=== PATIENT | male | born 2000 ===

== ENCOUNTER 2024-04-03 22:58 | Emergency (ER) | payer SELFPAY ==
[~2024-04-03] VITALS: Ht 188 cm; Wt 124.7 kg
[2024-04-03 23:29] LABS: BASOPHILS ABSOLUTE AUTO 0.06 K/mm3 (0.00-0.23); BASOPHILS PERCENT AUTO 1 % (0-2); EOSINOPHILS ABSOLUTE AUTO 0.27 K/mm3 (0.00-0.68); EOSINOPHILS PERCENT AUTO 3 % (0-6); Hematocrit 44.4 % (37.0-53.0); Hemoglobin 15.2 g/dL (13.5-17.5); IMMATURE GRAN ABSOLUTE AUTO 0.03 K/mm3 (0.00-0.10); IMMATURE GRAN PERCENT AUTO 0 % (0-1); LYMPHOCYTES ABSOLUTE AUTO 2.62 K/mm3 (0.84-5.20); LYMPHOCYTES PERCENT AUTO 29 % (21-46); MONOCYTES ABSOLUTE AUTO 0.67 K/mm3 (0.16-1.47); MONOCYTES PERCENT AUTO 7 % (4-13); Mean Corpuscular HGB 29.5 pg (26.0-34.0); Mean Corpuscular HGB Conc 34.2 g/dL (31.5-36.5); Mean Corpuscular Volume 86 fL (80-100); Mean Platelet Volume 9.4 fL (9.1-12.4); NEUTROPHILS ABSOLUTE AUTO 5.48 K/mm3 (1.96-9.15); NEUTROPHILS PERCENT AUTO 60 % (41-73); Platelet Count 270 K/mm3 (150-400); RDW Standard Deviation 38.1 fL (35.1-46.3); Red Blood Cell Count 5.16 M/mm3 (4.30-5.90); White Blood Cell Count 9.13 K/mm3 (4.00-11.30)
[2024-04-03 23:52] LABS: Albumin/Globulin Ratio 1.1 (0.8-1.8); Bilirubin, Total 0.2 mg/dL (0.1-1.0); Bun/Creatinine Ratio 15.4 (12.0-20.0); Calcium, Blood 9.1 mg/dL (8.5-10.1); Creatinine, Blood 1.04 mg/dL (0.60-1.20); Globulin, Blood 3.7 g/dL (2.2-4.0); Potassium, Blood 3.7 mmol/L (3.5-5.5); Total Protein, Blood 7.7 g/dL (6.4-8.2)
[2024-04-04 00:37] LABS: Source, Urine Clean Catch
[2024-04-04 00:42] LABS: Appearance, Urine Clear (Clear); Bilirubin, Urine Neg (Neg); Blood, Urine 4+ (Neg); Color, Urine Yellow (P-Yellow); Glucose Qualitative, Urine Neg (Neg); Ketones, Urine Neg (Neg); Leukocyte Esterase, Urine Neg (Neg); Nitrite, Urine Neg (Neg); Protein, Urine 2+ (Neg); Specific Gravity, Urine 1.025 (1.003-1.022); Urobilinogen, Urine NORM (Normal)
[2024-04-04 00:53] LABS: Bacteria Rare /hpf; Squamous Epithelial Cells Not Seen /hpf (Few); White Blood Cells, Urine 0-2 /hpf (0-5)
== END 2024-04-04 01:47 | disposition home or self-care (01) ==
LOC: ER 22:58
PROVIDERS: Physician Assistant
DX: K62.5 Hemorrhage of anus and rectum (principal); R31.29 Other microscopic hematuria
CPT/HCPCS: 80053; 81001; 85025; 99283

== ENCOUNTER 2025-10-14 03:15 | Emergency (ER) | payer SELFPAY ==
[~2025-10-14] VITALS: Ht 190.5 cm; Wt 120.2 kg
[2025-10-14] MEDS ORDERED: Ketorolac Tromethamine 30mg Vial IM ONE (07:25)
[2025-10-14] MEDS ORDERED: Neomycin/Polymyxin/Hydrocort Otic 10 ml BOTHEARS ONE (07:30)
[2025-10-14] MEDS ORDERED: AMOX875 PO (07:33)
== END 2025-10-14 07:57 | disposition home or self-care (01) ==
LOC: ER 03:15
DX: H66.92 Otitis media, unspecified, left ear (principal); I10 Essential (primary) hypertension
CPT/HCPCS: 96372; 99282-25; A9270; J1885

== ENCOUNTER 2025-10-15 05:15 | Emergency (ER) | payer SELFPAY ==
[~2025-10-15] VITALS: Ht 177.8 cm; Wt 99.8 kg
[~2025-10-15 05:15] MED LIST: AMOX875 PO
== END 2025-10-15 06:32 | disposition home or self-care (01) ==
LOC: ER 05:15
DX: R60.0 Localized edema (principal); H60.93 Unspecified otitis externa, bilateral; H66.93 Otitis media, unspecified, bilateral
CPT/HCPCS: 99282; A9270